=== PATIENT | female | born 1980 | race Hispanic/Latino ===

== ENCOUNTER 2018-01-15 13:42 | Inpatient (IN) | payer OTHER, SELFPAY ==
[2018-01-15 14:30] LABS: #Eosinphils 0.1 thou/uL (0.0-0.7); #Lymphocytes 0.9 thou/uL (1.20-3.40); #Monocytes 0.5 thou/uL (0.11-0.59); #Neutrophils 2.8 thou/uL (1.40-6.50); %Basophils 0.5 % (0.0-1.0); %Eosinophils 2.5 % (0.0-10.0); %Lymphocytes 21.1 % (21.0-51.0); %Monocytes 11.7 % (0.0-10.0); %Neutrophils 64.2 % (42.0-75.0); Hemoglobin 10.4 g/dL (12.0-16.0); Mean Corpuscular HGB CONC 32.8 g/dL (32.0-36.0); Mean Corpuscular Hemoglobin 28.3 pg (27.0-31.0); Mean Corpuscular Volume 86.3 fl (81.0-99.0); Mean Platelet Volume 6.1 fL (7.4-10.4); Platelet Count 304 thou/uL (130-400); RBC Distribution Width 12.7 % (11.5-14.5); Red Blood Cell (RBC) Count 3.66 mill/uL (4.20-5.40); White Blood Cell (WBC) Count 4.4 thou/uL (4.8-10.8)
[2018-01-15 14:42] LABS: Bilirubin Negative (Negative); Blood, Urine Negative (Negative); Clarity CLEAR (Clear); Glucose, Urine (Dipstick) Negative (Negative); Leukocyte Negative (Negative); Nitrite Negative (Negative); Protein, Urine (Dipstick) Negative (Neg-Trace); Specific Gravity, Urine 1.013 (1.002-1.036); Urobilinogen 0.2 mg/dL (0.2-1.0)
[2018-01-15 14:45] LABS: Pregnancy Test - Urine (BHCG) Negative (Negative); Pregu Control Background? CLEAR/WHITE (CLR/WHITE); Pregu Control Bar Appear? YES (CONTROL BAR); Specific Gravity 1.013 (1.002-1.036)
[2018-01-15 14:51] LABS: ALT (SGPT) 7 U/L (8-55); AST (SGOT) 9 U/L (5-34); Albumin 3.4 g/dL (3.5-5.0); Alkaline Phosphatase 57 U/L (40-150); Anion Gap 12 mmol/L (10-20); BUN (Urea Nitrogen) 4 mg/dL (7.0-18.7); Bilirubin, Total 0.3 mg/dL (0.2-1.2); Calc. Creatinine Clearance 0 mL/min (70-130); Calcium 8.6 mg/dL (7.8-10.44); Carbon Dioxide 25 mmol/L (22-29); Chloride 100 mmol/L (98-107); Estimated GFR-MDRD Greater than 90; Globulin 2.9 g/dL (2.4-3.5); Glucose 88 mg/dL (70-105); Lipase 10 U/L (8-78); Potassium 3.4 mmol/L (3.5-5.1); Protein, Total 6.3 g/dL (6.0-8.3); Sodium 134 mmol/L (136-145)
--- NOTE | 2018-01-15 16:09 | ULT ---
PELVIC SONOGRAM TRANSABDOMINAL AND TRANSVAGINAL IMAGING WITH DUPLEX EVALUATION: Date; 01/15/18 HISTORY: Pelvic pain. FINDINGS: Urinary bladder is decompressed. Uterus has a heterogeneous echotexture and is 7.7 cm. Endometrium is 1.3 cm. No free fluid is apparent. Nabothian cyst arises from the cervix. Right ovary is 2.9 cm. Left ovary is 2.3 cm. Each has a normal sonographic appearance and demonstrate s good color and spectral Doppler flow. IMPRESSION: 1. Thickened endometrium (1.3 cm). 2. No significant abnormalities are otherwise demonstrated. POS: [facility]
[2018-01-15] MEDS ORDERED: Morphine 2 MG/ML SYRINGE ONE (17:19)
--- NOTE | 2018-01-15 17:59 | RAD ---
ABDOMEN ONE VIEW 01/15/18 HISTORY: Abdominal pain. COMPARISON: None. FINDINGS: There are numerous gas filled loops of large bowel. Evaluation for free air is limited without uprigh t exam. There appears to be a lumbosacral transitional vertebrae. No abnormal calcifications projecting in the renal shadows. IMPRESSION: Mildly distended loops of large bowel that may represent ileus. POS: [facility]
[2018-01-15] MEDS ORDERED: Sodium Chloride 0.9% 1,000 ML IV SCH (18:15)
[2018-01-15] MEDS ORDERED: Morphine 2 MG/ML SYRINGE SLOW IVP PRN (18:21)
[2018-01-15] MEDS: Potassium Chloride 10 MEQ in Dextrose 5 % And 0.9 % NaCl 1,000 ML IV SCH (21:02)
--- NOTE | 2018-01-15 21:13 | HP ---
CHIEF COMPLAINT: Abdominal pain and bloody diarrhea. PRIMARY CARE PHYSICIAN: No primary care physician. HISTORY OF PRESENT ILLNESS: The patient is a very pleasant 37-year-old female who initially presente d to the hospital from a GI clinic for abdominal pain and bloody diarrhea. The patient stated that s he has a history of ulcerative colitis and has not been on any medication until 3 weeks ago. The pat vikki stated that 3 weeks ago, she went to Dr. Jmaes's office, her GI doctor, for abdominal pain and b loody diarrhea. At that time, the patient stated that she was put on steroids, sulfasalazine and mes alamine and today the patient returned to the office for followup and was asked to come here to the [facility]. The patient states that she has been having some chills and also complained of subjective f jay jay. The patient states that she has been trying to continue to take oral hydration; however, not as much. The patient denies any sick contacts. The patient states that she has been compliant with her prednisone. The patient when was admitted into the ER, there was a misunderstanding that she initially presented with vaginal bleeding and underwent a vaginal ultrasound and therefore, the patient and family has be en very upset about this. ALLERGIES: The patient has no known drug allergies. PAST MEDICAL HISTORY: The patient has a history of ulcerative colitis. FEMALE SURGERIES: The patient has had no female surgeries. SOCIAL HISTORY: The patient denies any alcohol, drug or smoking history. PAST SURGICAL HISTORY: The patient denies any surgical history. FAMILY HISTORY: The patient denies any significant history of heart disease. REVIEW OF SYSTEMS: The following complete review of systems was negative, unless otherwise mentioned in the HPI or below: Constitutional: Weight loss or gain, ability to conduct usual activities. Skin: Rash, itching. Eyes: Double vision, pain. ENT/Mouth: Nose bleeding, neck stiffness, pain, tenderness. Cardiovascular: Palpitations, dyspnea on exertion, orthopnea. Respiratory: Shortness of breath, wheezing, cough, hemoptysis, fever or night sweats. Gastrointestinal: Poor appetite, abdominal pain, heartburn, nausea, vomiting, constipation, or diarr hea. Genitourinary: Urgency, frequency, dysuria, nocturia. Musculoskeletal: Pain, swelling. Neurologic/Psychiatric: Anxiety, depression. Allergy/Immunologic: Skin rash, bleeding tendency. The only positive from that is the patient has been complaining of abdominal pain and having bloody d iarrhea and subjective fevers. PHYSICAL EXAMINATION: VITAL SIGNS: Blood pressure 106/70, heart rate of 118, respirations of 18, temperature of 97.4. GENERAL: She is awake, alert, oriented x3, does not appear in any distress; however, appears ill. RESPIRATORY: Lungs are clear to auscultation. No rhonchi or wheezes noted. CARDIOVASCULAR: S1, S2 present, regular, tachycardic. No murmurs present. ABDOMEN: Soft. Bowel sounds are present x2. Significant tenderness upon palpation to her left lowe r quadrant. EXTREMITIES: No pitting edema. Pedal pulses are present x2. LABORATORY DATA: As the following: WBC is 4.4, hemoglobin of 10.4, hematocrit of 31.6. Her ESR was 43. CRP was 6.7. Sodium of 134, potassium of 3.4, chloride of 100, creatinine 0.64. Lipase of 10. ASSESSMENT AND PLAN: The patient is a very pleasant 37-year-old female, who presents to the hospital with complaints of abdominal pain. 1. Abdominal pain, most likely secondary to ulcerative colitis flare. We will check patient's stool for C. diff, leukocytes and ova and parasites and E. coli to rule out any infectious process. We wi ll start the patient on Cipro and Flagyl. We will start the patient on IV prednisone and also rectal ly mesalamine. The patient currently is n.p.o. We will continue IV hydration. Consult GI. 2. Sinus tachycardia, most likely secondary to dehydration. We will continue IV hydration. We will admit the patient in telemetry. 3. Hypokalemia. We will replace potassium in her IV fluids.
[2018-01-15] MEDS: Famotidine 40 MG/4 ML VIAL SLOW IVP SCH (21:22)
[2018-01-15] MEDS: metroNIDAZOLE 500 MG in Premix Bag 1 BAG IVPB SCH (21:23)
[2018-01-15] MEDS: Heparin 5,000 UNITS/ML VIAL SC SCH (21:24)
[2018-01-15] MEDS: Morphine 5 MG/ML SYRINGE SLOW IVP PRN (21:51)
[2018-01-15 22:32] VITALS: BMI 21.7
--- NOTE | 2018-01-15 23:36 | CON ---
DATE OF CONSULTATION: 01/15/2018 GASTROENTEROLOGY CONSULTATION CHIEF COMPLAINT: Abdominal pain and bloody diarrhea. HISTORY OF PRESENT ILLNESS: Ms. Hager is a 37-year-old woman whom I have been following for left-si ded ulcerative colitis. I last saw her in 08/2016, at which point she was in remission on sulfasalaz ine alone. She has not been compliant with azathioprine and never really took this regularly. She s tarted cutting down her sulfasalazine and has been taking it maybe twice per day lately. She lucy hart was presented back to the GI clinic in mid-December with cramping left lower quadrant abdominal p ain and red blood mixed with formed stool, at which point she was started back on prednisone and her sulfasalazine dose was increased. She was advised to start the azathioprine 100 mg daily. Since the n, when she was 2-3 weeks ago, she did start azathioprine, has been taking sulfasalazine 1000 mg 3 ti mes a day. Unfortunately, her abdominal pain has worsened and she started with diarrhea 4-6 times pe r day which has just been liquidy bloody stool. She came to the office today and was seen by our [facility] assistant; however, she was very weak and she was tachycardic with a pulse over 120 and allyson tran was advised to head on to the emergency room. She received IV fluid in the emergency room and a fter that felt much better and her heart rate improved. There was some misunderstanding in the ER, a nd that she was thought to be having vaginal bleeding and she underwent pelvic ultrasound, which was unremarkable overall. There was a thickened endometrium. Abdominal x-ray showed mildly distended lo ops of large bowel. She has not had fever. She did report some subjective fever, however. Her abdo shagufta pain is significantly improved this afternoon; however, this evening after receiving IV morphin e. PAST MEDICAL HISTORY: Chronic ulcerative colitis diagnosed in 2011 with left-sided colitis to around 30 cm. She has been treated primarily with sulfasalazine and episodic steroids. She has been start ed on azathioprine at various points, but has not been compliant with that. PAST SURGICAL HISTORY: Colonoscopy. FAMILY HISTORY: Negative for GI malignancy. SOCIAL HISTORY: No alcohol, tobacco, or drugs. ALLERGIES: No known drug allergies. MEDICATIONS: Prior to admission azathioprine 100 mg daily, sulfasalazine 500 mg 3 times daily, folic acid 1 mg daily, and prednisone 10 mg daily on a taper that started at 40 mg. REVIEW OF SYSTEMS: Negative x10 systems reviewed except as stated in the history of present illness. PHYSICAL EXAMINATION: GENERAL: She is in no acute distress, alert and oriented x3. HEENT: Eyes have no scleral icterus. OROPHARYNX: Clear without lesions. NECK: No cervical or supraclavicular lymphadenopathy. LUNGS: Clear to auscultation bilaterally. HEART: Regular rate and rhythm without murmur. ABDOMEN: Soft, mildly tender diffusely without guarding. Bowel sounds are present. EXTREMITIES: No lower extremity edema. LABORATORY DATA: White blood cell count 4.4, hemoglobin 10.4, platelets 304. Creatinine 0.64. Bili rivera 0.3, AST 9, ALT 7, alkaline phosphatase 57. C-reactive protein 6.7, albumin 3.4, lipase 10. IMPRESSION: Exacerbation of chronic left-sided ulcerative colitis. We will need to rule out an infe ctious process. RECOMMENDATIONS: 1. Start methylprednisolone 20 mg IV q.8 hours. 2. She has been started on ciprofloxacin and metronidazole. Given the subjective fever and rectal b leeding and bloody diarrhea, this is reasonable. We may be able to wean these off after 5-7 day cour se. 3. Stool studies have been requested for Clostridium difficile, ova, parasite, culture and lactoferr in. She has not had a bowel movement for the last several hours and has not been able to collect the se as of yet. 4. Await stool studies. 5. We will increase the sulfasalazine 1000 mg 4 times daily. 6. Continue the azathioprine. 7. Continue folic acid if she is on sulfasalazine.
[2018-01-16] MEDS: Mesalamine 1000 MG Suppository PR SCH ×2 (00:05→20:33)
[2018-01-16] MEDS: Potassium Chloride 10 MEQ in Dextrose 5 % And 0.9 % NaCl 1,000 ML IV SCH ×4 (05:32→21:47)
[2018-01-16] MEDS: metroNIDAZOLE 500 MG in Premix Bag 1 BAG IVPB SCH ×3 (05:33→21:45)
[2018-01-16] MEDS: Morphine 5 MG/ML SYRINGE SLOW IVP PRN ×2 (05:38→14:12)
[2018-01-16 06:10] LABS: ALT (SGPT) Less than 7 U/L (8-55); AST (SGOT) 7 U/L (5-34); Albumin 2.9 g/dL (3.5-5.0); Alkaline Phosphatase 43 U/L (40-150); Anion Gap 11 mmol/L (10-20); BUN (Urea Nitrogen) Less than 4 mg/dL (7.0-18.7); Bilirubin, Total 0.2 mg/dL (0.2-1.2); Calc. Creatinine Clearance 103 mL/min (70-130); Calcium 7.8 mg/dL (7.8-10.44); Carbon Dioxide 22 mmol/L (22-29); Chloride 104 mmol/L (98-107); Estimated GFR-MDRD Greater than 90; Globulin 2.3 g/dL (2.4-3.5); Glucose 119 mg/dL (70-105); Potassium 3.6 mmol/L (3.5-5.1); Protein, Total 5.2 g/dL (6.0-8.3); Sodium 133 mmol/L (136-145)
[2018-01-16 06:35] LABS: Band 11 % (5-11); Hemoglobin 9.1 g/dL (12.0-16.0); Lymphocytes 13 % (21-51); MDiff Complete? YES; Mean Corpuscular HGB CONC 33.2 g/dL (32.0-36.0); Mean Corpuscular Hemoglobin 28.6 pg (27.0-31.0); Mean Corpuscular Volume 86.2 fl (81.0-99.0); Mean Platelet Volume 6.5 fL (7.4-10.4); Monocytes 7 % (0-10); Neutrophil 69 % (42-75); PLT Morphology Comment Appears Adequate; Platelet Count 284 thou/uL (130-400); RBC Distribution Width 12.9 % (11.5-14.5); RBC Morphology Normal; Red Blood Cell (RBC) Count 3.18 mill/uL (4.20-5.40); White Blood Cell (WBC) Count 4.6 thou/uL (4.8-10.8)
[2018-01-16] MEDS ORDERED: Potassium Chloride 20 MEQ TAB PO SCH (07:30)
[2018-01-16] MEDS ORDERED: FLU VACC QS2017-18 36 mo. & older 0.5 ML SYRINGE IM ONE (09:00)
[2018-01-16] MEDS: azaTHIOprine 50 MG TAB PO SCH (09:13)
[2018-01-16] MEDS: Heparin 5,000 UNITS/ML VIAL SC SCH ×3 (09:14→20:32)
[2018-01-16] MEDS: Famotidine 40 MG/4 ML VIAL SLOW IVP SCH ×2 (09:14→21:41)
[2018-01-16] MEDS: D5W IVPB SCH ×2 (09:23→20:32)
[2018-01-16] MEDS: ADMIXTURE FEE IVPB SCH ×2 (09:23→20:32)
[2018-01-16] MEDS: CIPROFLOXACIN LACTATE IVPB SCH ×2 (09:23→20:32)
--- NOTE | 2018-01-16 10:44 | PDOC.PN ---
- Subjective Encounter Start Date: 01/16/18 Encounter Start Time: 10:46 Subjective: No new complaints. -: No acute events overnight. - Objective MAR Reviewed: Yes Vital Signs & Weight: Vital Signs (12 hours) Temp Pulse Resp BP Pulse Ox 01/16/18 07:22 98.7 F 111 H 16 107/62 97 01/16/18 04:27 99.7 F H 102 H 18 117/58 L 97 Weight Weight 110 lb 14.28 oz I&O: 01/15/18 01/16/18 01/17/18 06:59 06:59 06:59 Intake Total 1375 Balance 1375 Result Diagrams: 01/16/18 04:59 01/16/18 04:59 Phys Exam - Physical Examination Constitutional: NAD HEENT: PERRLA, moist MMs, sclera anicteric Neck: no JVD, supple, full ROM Respiratory: no wheezing, no rales, no rhonchi, clear to auscultation bilateral Cardiovascular: RRR, no significant murmur, no rub Gastrointestinal: soft, no distention, positive bowel sounds LLQ tenderness. No rebound, guarding Musculoskeletal: no edema, pulses present Neurological: non-focal, moves all 4 limbs Psychiatric: normal affect, A&O x 3 Skin: no rash, normal turgor Dx/Plan (1) Ulcerative colitis, acute Code(s): K51.90 - ULCERATIVE COLITIS, UNSPECIFIED, WITHOUT COMPLICATIONS Status: Acute Qualifiers: Digestive disease complication type: with rectal bleeding Qualified Code(s) : K51.911 - Ulcerative colitis, unspecified with rectal bleeding Comment: Stable. Still has some pain but controlled. GI on board. Recs appreciated. Will continue antibiotics, imuran and sulfasalazinie. Follow up stool studies, including c. diff once collected. (2) Tachycardia Code(s): R00.0 - TACHYCARDIA, UNSPECIFIED Status: Acute Comment: Improving. Will give a bolus of normal saline. (3) Hypokalemia Code(s): E87.6 - HYPOKALEMIA Status: Acute Comment: Replete. - Plan cont current plan of care, continue antibiotics * . Review of Systems - Medications/Allergies Allergies/Adverse Reactions: Allergies Allergy/AdvReac Type Severity Reaction Status Date / Time No Known Drug Allergies Allergy Verified 01/15/18 22:11 Medications: Current Medications Azathioprine (Imuran) 100 mg PO DAILY [facility] Last Admin: 01/16/18 09:13 Dose: 100 mg Famotidine (Pepcid) 20 mg SLOW IVP Q12HR [facility] Last Admin: 01/16/18 09:14 Dose: 20 mg Folic Acid (Folvite) 1 mg PO DAILY [facility] Heparin Sodium (Porcine) (Heparin) 5,000 units SC TID [facility] Last Admin: 01/16/18 09:14 Dose: 5,000 units Metronidazole 500 mg/ Device 100 mls @ 100 mls/hr IVPB Q8HR [facility] Last Admin: 01/16/18 05:33 Dose: 100 mls Potassium Chloride 10 meq/ (Dextrose/Sodium Chloride) 1,005 mls @ 125 mls/hr IV .Q8H3M [facility] Last Admin: 01/16/18 05:32 Dose: 1,005 mls Ciprofloxacin/Dextrose 400 mg/ (Miscellaneous Medication) 200 mls @ 200 mls/hr IVPB Q12HR [facility] Last Admin: 01/16/18 09:23 Dose: Not Given Mesalamine (Canasa) 1,000 mg MO HS [facility] Last Admin: 01/16/18 00:05 Dose: Not Given Methylprednisolone Sodium Succinate (Solu-Medrol) 20 mg IVP Q8HR [facility] Last Admin: 01/16/18 05:30 Dose: 20 mg Morphine Sulfate (Morphine) 2 mg SLOW IVP Q4H PRN PRN Reason: Mild-Moderate Pain (1-5) Last Admin: 01/16/18 05:38 Dose: 2 mg Sodium Chloride (Flush - Normal Saline) 10 ml IVF Q12HR [facility] Last Admin: 01/16/18 09:19 Dose: Not Given Sodium Chloride (Flush - Normal Saline) 10 ml IVF PRN PRN PRN Reason: Saline Flush
[2018-01-16] MEDS ORDERED: Sodium Chloride 0.9% 1,000 ML IV SCH (10:45)
--- NOTE | 2018-01-16 15:15 | PRG ---
DATE OF SERVICE: 01/16/2018 SUBJECTIVE: Ms. Hager has ongoing periumbilical cramping pain today. She just had one bowel moveme nt so far today, which was red and bloody and one yesterday, which was red and bloody. No fever. OBJECTIVE: VITAL SIGNS: Temperature 98.4, pulse 94 and blood pressure 121/54. GENERAL: She is in no acute distress. She is awake and alert. LUNGS: Clear to auscultation bilaterally. HEART: Regular rate and rhythm. ABDOMEN: Soft and tender diffusely. Bowel sounds are present. EXTREMITIES: No lower extremity edema. LABORATORY DATA: White blood cell count 4.6, hemoglobin 9.1 and platelets 284. Creatinine 0.58, evelyn irubin 0.2 and albumin 2.9. IMPRESSION: Exacerbation of chronic ulcerative colitis. She has had left-sided disease by previous exams. Her last colonoscopy was in 2012. Her stool studies are negative for Clostridium difficile a nd other infections. RECOMMENDATIONS: 1. IV steroids. 2. Restart sulfasalazine and follow up with folic acid. 3. She has been started on azathioprine. 4. We will add Levsin for the abdominal pain or hyoscyamine. 5. She was started on ciprofloxacin and metronidazole. We can finish out a 5-day course of antibiot ics. 6. Dr. Horn is covering the weekend and I will be out of town next week. Dr. Castillo or Dr. Nagel will take over on Friday.
[2018-01-16] MEDS: sulfaSALAzine 500 MG TAB PO SCH ×2 (17:56→20:32)
[2018-01-16] MEDS: Hyoscyamine Sulfate SL 0.125 mg Tablet PO PRN (21:47)
[2018-01-17 05:19] LABS: #Lymphocytes 0.4 thou/uL (1.20-3.40); #Monocytes 0.4 thou/uL (0.11-0.59); #Neutrophils 2.8 thou/uL (1.40-6.50); %Eosinophils 0.2 % (0.0-10.0); %Monocytes 11.8 % (0.0-10.0); %Neutrophils 75.9 % (42.0-75.0); Hemoglobin 9.7 g/dL (12.0-16.0); Mean Corpuscular HGB CONC 32.6 g/dL (32.0-36.0); Mean Corpuscular Hemoglobin 28.2 pg (27.0-31.0); Mean Corpuscular Volume 86.8 fl (81.0-99.0); Mean Platelet Volume 6.6 fL (7.4-10.4); Platelet Count 346 thou/uL (130-400); RBC Distribution Width 12.9 % (11.5-14.5); Red Blood Cell (RBC) Count 3.43 mill/uL (4.20-5.40); White Blood Cell (WBC) Count 3.7 thou/uL (4.8-10.8)
[2018-01-17] MEDS: metroNIDAZOLE 500 MG in Premix Bag 1 BAG IVPB SCH ×3 (05:25→22:50)
[2018-01-17 05:28] LABS: Anion Gap 9 mmol/L (10-20); BUN (Urea Nitrogen) Less than 4 mg/dL (7.0-18.7); Calc. Creatinine Clearance 98 mL/min (70-130); Calcium 8.4 mg/dL (7.8-10.44); Carbon Dioxide 23 mmol/L (22-29); Chloride 108 mmol/L (98-107); Estimated GFR-MDRD Greater than 90; Glucose 152 mg/dL (70-105); Potassium 3.6 mmol/L (3.5-5.1); Sodium 136 mmol/L (136-145)
--- NOTE | 2018-01-17 10:25 | PDOC.PN ---
- Subjective Encounter Start Date: 01/17/18 Encounter Start Time: 10:24 Subjective: Had 2-3 bloody movements overnight -: Has no other complaints today. No acute events overnight. - Objective MAR Reviewed: Yes Vital Signs & Weight: Vital Signs (12 hours) Temp Pulse Resp BP Pulse Ox 01/17/18 07:42 99.1 F 96 18 100/51 L 97 01/17/18 04:00 98.5 F 100 20 112/62 97 01/17/18 00:00 20 Weight Weight 107 lb 12.897 oz I&O: 01/16/18 01/17/18 01/18/18 06:59 06:59 07:59 Intake Total 1375 3749 Output Total 450 Balance 1375 3299 Result Diagrams: 01/17/18 04:47 01/17/18 04:47 Phys Exam - Physical Examination Constitutional: NAD HEENT: PERRLA, moist MMs, sclera anicteric Neck: supple, full ROM Respiratory: no wheezing, no rales, no rhonchi, clear to auscultation bilateral Cardiovascular: RRR, no significant murmur, no rub Gastrointestinal: soft, no distention, positive bowel sounds Mild tenderness in LLQ. No rebound, guarding. Musculoskeletal: no edema, pulses present Neurological: non-focal, moves all 4 limbs Skin: no rash, normal turgor Dx/Plan (1) Ulcerative colitis, acute Code(s): K51.90 - ULCERATIVE COLITIS, UNSPECIFIED, WITHOUT COMPLICATIONS Status: Acute Qualifiers: Digestive disease complication type: with rectal bleeding Qualified Code(s) : K51.911 - Ulcerative colitis, unspecified with rectal bleeding Comment: Stable. Still has some pain but controlled. GI on board. Recs appreciated. Will continue antibiotics, imuran and sulfasalazinie. Stool studies w + lactoferrin but otherwise negative. (2) Tachycardia Code(s): R00.0 - TACHYCARDIA, UNSPECIFIED Status: Resolved Comment: (3) Hypokalemia Code(s): E87.6 - HYPOKALEMIA Status: Resolved - Plan cont current plan of care, continue antibiotics * . Review of Systems - Medications/Allergies Allergies/Adverse Reactions: Allergies Allergy/AdvReac Type Severity Reaction Status Date / Time No Known Drug Allergies Allergy Verified 01/15/18 22:11 Medications: Current Medications Azathioprine (Imuran) 100 mg PO DAILY [facility] Last Admin: 01/16/18 09:13 Dose: 100 mg Famotidine (Pepcid) 20 mg SLOW IVP Q12HR [facility] Last Admin: 01/16/18 21:41 Dose: 20 mg Folic Acid (Folvite) 1 mg PO DAILY [facility] Heparin Sodium (Porcine) (Heparin) 5,000 units SC TID [facility] Last Admin: 01/16/18 20:32 Dose: 5,000 units Hyoscyamine Sulfate (Levsin Sl) 0.125 mg PO Q4H PRN PRN Reason: GI Cramping Last Admin: 01/16/18 21:47 Dose: 0.125 mg Metronidazole 500 mg/ Device 100 mls @ 100 mls/hr IVPB Q8HR [facility] Last Admin: 01/17/18 05:25 Dose: 100 mls Potassium Chloride 10 meq/ (Dextrose/Sodium Chloride) 1,005 mls @ 125 mls/hr IV .Q8H3M [facility] Last Admin: 01/16/18 21:47 Dose: 1,005 mls Ciprofloxacin/Dextrose 400 mg/ (Miscellaneous Medication) 200 mls @ 200 mls/hr IVPB Q12HR [facility] Last Admin: 01/16/18 20:32 Dose: 200 mls Mesalamine (Canasa) 1,000 mg IN HS [facility] Last Admin: 01/16/18 20:33 Dose: 1,000 mg Methylprednisolone Sodium Succinate (Solu-Medrol) 20 mg IVP Q8HR [facility] Last Admin: 01/17/18 05:25 Dose: 20 mg Morphine Sulfate (Morphine) 2 mg SLOW IVP Q4H PRN PRN Reason: Mild-Moderate Pain (1-5) Last Admin: 01/16/18 14:12 Dose: 2 mg Sodium Chloride (Flush - Normal Saline) 10 ml IVF Q12HR [facility] Last Admin: 01/16/18 21:43 Dose: 10 ml Sodium Chloride (Flush - Normal Saline) 10 ml IVF PRN PRN PRN Reason: Saline Flush Sulfasalazine (Azulfidine) 1,000 mg PO QID [facility] Last Admin: 01/16/18 20:32 Dose: 1,000 mg
[2018-01-17] MEDS: Famotidine 40 MG/4 ML VIAL SLOW IVP SCH (10:34)
[2018-01-17] MEDS: CIPROFLOXACIN LACTATE IVPB SCH ×2 (10:35→20:56)
[2018-01-17] MEDS: ADMIXTURE FEE IVPB SCH ×2 (10:35→20:56)
[2018-01-17] MEDS: D5W IVPB SCH ×2 (10:35→20:56)
[2018-01-17] MEDS: Potassium Chloride 10 MEQ in Dextrose 5 % And 0.9 % NaCl 1,000 ML IV SCH ×2 (10:35→19:24)
[2018-01-17] MEDS: azaTHIOprine 50 MG TAB PO SCH (10:36)
[2018-01-17] MEDS: Heparin 5,000 UNITS/ML VIAL SC SCH ×3 (10:36→21:01)
[2018-01-17] MEDS: sulfaSALAzine 500 MG TAB PO SCH ×4 (10:36→21:00)
[2018-01-17] MEDS: Folic Acid 1 MG TAB PO SCH (10:36)
[2018-01-17] MEDS: Mesalamine 1000 MG Suppository PR SCH (21:01)
[2018-01-17] MEDS: Famotidine/PF 20 mg/2ml Vial SLOW IVP SCH (21:02)
--- NOTE | 2018-01-17 21:02 | PRG ---
DATE OF SERVICE: 01/17/2018 This is a cross coverage for Dr. Gurpreet James. SUBJECTIVE: Ms. Camille Hager is a 37-year-old Latin-[place] female with ulcerative colitis. She is poorly compliant with taking medication. She came with flareup. She is on IV steroids and azathiop rine. She is actually feeling better today. She has had only one stool today. She had 2 or 3 stool s last night. She has no abdominal pain, no nausea, no vomiting. She is still on clear liquid diet. PHYSICAL EXAMINATION: GENERAL: Appears comfortable. VITAL SIGNS: Afebrile, temperature 98 degrees Fahrenheit, pulse is 89, blood pressure 107/64. CARDIOVASCULAR: First and second heart sounds are normal. LUNGS: Clear to auscultation. ABDOMEN: Soft to palpate. Abdomen is nontender. No organomegaly. LABORATORY DATA: From today, WBC 3700, hemoglobin is 10.7, hematocrit 29.8, platelet count 346,000. Chemistry panel: Sodium 136, potassium 3.6, chloride 108, bicarbonate 23, BUN is less than 4, creat inine 0.61, glucose 152. CLINICAL IMPRESSION: Flare up of ulcerative colitis due to poor compliance. She is actually doing b john today. She has had only one stool today. She is on IV prednisone and azathioprine. RECOMMENDATION: Advance to a regular diet and observe for 24 hours. If the stool frequency remains around 1-2, we may consider discharge hopefully tomorrow on systemic steroids and azathioprine.
[2018-01-17] MEDS ORDERED: Ibuprofen 200 MG TAB PO SCH (21:45)
[2018-01-17] MEDS: Hyoscyamine Sulfate SL 0.125 mg Tablet PO PRN (22:55)
[2018-01-18 05:18] LABS: #Lymphocytes 0.4 thou/uL (1.20-3.40); #Monocytes 0.2 thou/uL (0.11-0.59); %Basophils 0.3 % (0.0-1.0); %Eosinophils 0.4 % (0.0-10.0); %Lymphocytes 16.2 % (21.0-51.0); %Monocytes 8.2 % (0.0-10.0); Hemoglobin 8.5 g/dL (12.0-16.0); Mean Corpuscular HGB CONC 32.3 g/dL (32.0-36.0); Mean Corpuscular Hemoglobin 27.9 pg (27.0-31.0); Mean Corpuscular Volume 86.6 fl (81.0-99.0); Mean Platelet Volume 6.3 fL (7.4-10.4); Platelet Count 297 thou/uL (130-400); RBC Distribution Width 12.8 % (11.5-14.5); Red Blood Cell (RBC) Count 3.05 mill/uL (4.20-5.40); White Blood Cell (WBC) Count 2.7 thou/uL (4.8-10.8)
[2018-01-18] MEDS: metroNIDAZOLE 500 MG in Premix Bag 1 BAG IVPB SCH (05:22)
[2018-01-18 05:32] LABS: Anion Gap 9 mmol/L (10-20); BUN (Urea Nitrogen) Less than 4 mg/dL (7.0-18.7); Calc. Creatinine Clearance 106 mL/min (70-130); Calcium 7.9 mg/dL (7.8-10.44); Carbon Dioxide 23 mmol/L (22-29); Chloride 109 mmol/L (98-107); Estimated GFR-MDRD Greater than 90; Glucose 131 mg/dL (70-105); Potassium 3.6 mmol/L (3.5-5.1); Sodium 137 mmol/L (136-145)
[2018-01-18] MEDS: Potassium Chloride 10 MEQ in Dextrose 5 % And 0.9 % NaCl 1,000 ML IV SCH (09:46)
[2018-01-18] MEDS: Folic Acid 1 MG TAB PO SCH (09:47)
[2018-01-18] MEDS: D5W IVPB SCH (09:47)
[2018-01-18] MEDS: CIPROFLOXACIN LACTATE IVPB SCH (09:47)
[2018-01-18] MEDS: Famotidine/PF 20 mg/2ml Vial SLOW IVP SCH (09:47)
[2018-01-18] MEDS: azaTHIOprine 50 MG TAB PO SCH (09:47)
[2018-01-18] MEDS: ADMIXTURE FEE IVPB SCH (09:47)
[2018-01-18] MEDS: Heparin 5,000 UNITS/ML VIAL SC SCH (09:48)
[2018-01-18] MEDS: sulfaSALAzine 500 MG TAB PO SCH (09:53)
--- NOTE | 2018-01-18 13:10 | PRG ---
DATE OF SERVICE: 01/18/2018 SUBJECTIVE: This is a 37-year-old female with ulcerative colitis, poorly compliant, t aking medication. She was hospitalized because of her last drawn CBC. She has done very well over t he last couple of days. She had one stool, is formed. No blood in stool. She had two stools yester day. She is tolerating diet. Her stool studies for C. difficile, Campylobacter and culture all came back negative. Campylobacter antigen is negative. PHYSICAL EXAMINATION: GENERAL: Appears comfortable. She is a fragile looking female, appears very comforta ble. VITAL SIGNS: Stable. Afebrile, pulse is 84, blood pressure 106/57. LUNGS: Within normal limits. ABDOMEN: Soft to palpate. Abdomen is nontender. CLINICAL IMPRESSION: Ulcerative colitis relapse, symptoms are controlled. RECOMMENDATIONS: 1. Patient can be discharged home today on a steroid taper. Start patient on prednisone 30 mg p.o. once a day and she will cut down the prednisone by 5 mg every week. 2. Azathioprine 50 mg p.o. once a day. 3. Sulfasalazine 500 mg tablet 2 tablets p.o. twice a day. The patient will return to see Dr. Gurpreet James as an outpatient in the future. She does not need a ntibiotics at the time of discharge as her stool studies were negative.
--- NOTE | 2018-01-18 15:24 | DIS ---
DISCHARGE DIAGNOSES: 1. Ulcerative colitis flare. 2. Tachycardia. 3. Hypokalemia. HOSPITAL COURSE: While patient was in hospital, the patient was seen by GI. The patient was started on IV steroids as well as immunosuppressants with sulfasalazine as well as azathioprine. With these measures as well as keep the patient n.p.o. initially for bowel rest. The patient improved signific antly. Patient was afebrile with no leukocytosis. There is no further intervention is required from medicine as well as GI point of view. Because of this, we are okay with get her home with a tapered dose of steroids with sulfasalazine and azathioprine. She was instructed to followup with primary c are physician in 1 week as well as her GI specialist in 2 weeks. All questions answered prior to dis charge. DISPOSITION: To home. DISCHARGE CONDITION: Much improved from when she initially came in. DISCHARGE MEDICATIONS: Please see home medication. Please see reconciled medication list, which inc ludes sulfasalazine as well as azathioprine. DISCHARGE ACTIVITY: As tolerated. DISCHARGE DIET: As tolerated. FOLLOWUP APPOINTMENTS: Primary care in 1 week as well as GI in 2 weeks. DISCHARGE PLAN: Greater than 30 minutes.
[2018-01-18 15:27] VITALS: BP 104/58; TEMP 98.2
== END 2018-01-18 13:30 | disposition home or self-care (01) | DRG 387 ==
LOC: ERS 13:42 → 2NO 19:15 → ONC 01-17 13:41
PROVIDERS: ADMIT Internal Medicine; ATTEND Internal Medicine
DX: K51.50 Left sided colitis without complications (principal); E86.0 Dehydration; R00.0 Tachycardia, unspecified; E87.6 Hypokalemia; Z79.899 Other long term (current) drug therapy
CPT/HCPCS: 36415; 74018; 76856; 80048; 80053; 81003; 81025; 83630; 83690; 85007; 85025; 85027; 85652; 86140; 86850; 86900; 86901; 87045; 87046; 87324; 87449; 87899; 96361; 96374; J2270; A4216; J0744; J1644; J2920; J3480; J7042; J7500; S0028

== ENCOUNTER 2018-08-14 12:23 | Inpatient (IN) | payer OTHER, SELFPAY ==
[2018-08-14 13:03] LABS: Hemoglobin 12.3 g/dL (12.0-16.0); Mean Corpuscular HGB CONC 33.8 g/dL (32.0-36.0); Mean Corpuscular Hemoglobin 32.4 pg (27.0-31.0); Mean Corpuscular Volume 95.7 fL (78.0-98.0); Mean Platelet Volume 6.9 fL (7.4-10.4); Platelet Count 386 thou/uL (130-400); RBC Distribution Width 13.6 % (11.5-14.5); Red Blood Cell (RBC) Count 3.81 mill/uL (4.20-5.40); White Blood Cell (WBC) Count 9.6 thou/uL (4.8-10.8)
[2018-08-14 13:15] LABS: BHCG - Serum Negative (NEGATIVE); Pregs Control Background? CLEAR/WHITE (CLR/WHITE); Pregs Control Bar Appear? YES (CONTROL BAR)
[2018-08-14 13:23] LABS: ALT (SGPT) Less than 7 U/L (8-55); AST (SGOT) 8 U/L (5-34); Albumin 3.5 g/dL (3.5-5.0); Alkaline Phosphatase 61 U/L (40-150); Anion Gap 10 mmol/L (10-20); BUN (Urea Nitrogen) 6 mg/dL (7.0-18.7); Bilirubin, Total 0.6 mg/dL (0.2-1.2); Calc. Creatinine Clearance 0 mL/min (70-130); Calcium 8.6 mg/dL (7.8-10.44); Carbon Dioxide 27 mmol/L (22-29); Chloride 100 mmol/L (98-107); Estimated GFR-MDRD Greater than 90; Globulin 3.1 g/dL (2.4-3.5); Glucose 114 mg/dL (70-105); Lipase 5 U/L (8-78); Potassium 3.2 mmol/L (3.5-5.1); Protein, Total 6.6 g/dL (6.0-8.3); Sodium 134 mmol/L (136-145)
[2018-08-14 13:27] LABS: Band 37 % (5-11); Eosinophils 3 % (0-10); Lymphocytes 8 % (21-51); MDiff Complete? YES; Metamyelocyte 1 % (0-0); Monocytes 11 % (0-10); Neutrophil 40 % (42-75); PLT Morphology Comment Appears Adequate; Polychromasia SLIGHT = 2-3 cells (100X) (0-2/hpf)
[2018-08-14] MEDS ORDERED: ISOVUE-370 76%-LOCM 1 ML ONE (13:28)
[2018-08-14 13:55] LABS: CKMB 0.6 ng/mL (0-6.6); Troponin I Less than 0.010 ng/mL (< 0.028)
[2018-08-14] MEDS ORDERED: Ondansetron HCl/PF 4 MG/2 ML Vial ONE (14:08)
[2018-08-14] MEDS ORDERED: Morphine 4 MG/ML VIAL ONE (14:08)
--- NOTE | 2018-08-14 14:23 | CT ---
CT ABDOMEN AND PELVIS WITH IV CONTRAST: Date: 08/14/18 HISTORY: Abdominal pain, rectal bleeding. History of ulcerative colitis. FINDINGS: The lung bases are clear. The liver, spleen, pancreas, adrenal glands, and kidneys are normal. No calcified gallstones are seen . No free air, free fluid, or lymphadenopathy is noted in the abdomen or pelvis. A normal appearing appendix is seen. There is thickening of the rectosigmoid and descending colon. Uterus and ovaries are present. There is a 2.0 cm right ovarian cyst. IMPRESSION: 1. Colonic wall thickening, which may be due to ulcerative colitis. 2. 2.0 cm right ovarian cyst. POS: [facility]
[2018-08-14] MEDS ORDERED: Dexamethasone 10 MG/ML VIAL ONE (15:15)
[2018-08-14 15:39] LABS: Bilirubin Negative (Negative); Blood, Urine Negative (Negative); Clarity CLEAR (Clear); Glucose, Urine (Dipstick) Negative (Negative); Leukocyte Negative (Negative); Nitrite Negative (Negative); Protein, Urine (Dipstick) Negative (Neg-Trace); Urobilinogen 0.2 mg/dL (0.2-1.0)
[2018-08-14 15:41] LABS: Specific Gravity, Urine Greater than 1.060 (1.002-1.036)
[2018-08-14] MEDS ORDERED: Ondansetron ODT 4 MG TAB PO PRN (16:18)
[2018-08-14] MEDS ORDERED: Acetaminophen 325 MG TAB PO PRN (16:18)
[2018-08-14] MEDS ORDERED: Potassium Chloride 20 MEQ TAB PO SCH (16:45)
[2018-08-14 18:00] VITALS: BMI 18.6
[2018-08-14 20:27] LABS: HBSAB Concentration 1.74 mIU/mL; HBSAg Index 0.31 S/CO (0-0.99); HIV (1/2) Antibody/Antigen Non-Reactive (NonReactive); HIV 1/2 INDEX 0.22 S/CO (<1.00); Hep B Core Total Ab Non-Reactive (NonReactive); Hep B Core Total Index 0.08 S/CO (0-0.79); Hep B Surf AB Non-Reactive (NonReactive); Hep B Surf Ag Non-Reactive S/CO (NonReactive); Hep C IgG Ab Non-Reactive (NonReactive); Hep C Index 0.14 S/CO (0-0.79)
[2018-08-14] MEDS: Famotidine 20 MG TAB PO SCH (20:34)
[2018-08-14] MEDS: Enoxaparin Sodium 30 MG/0.3 ML SYRINGE SC SCH (20:34)
--- NOTE | 2018-08-14 23:03 | HP ---
CHIEF COMPLAINT: Abdominal pain. HISTORY OF PRESENT ILLNESS: The patient is a 38-year-old female who presented to the [facility]. The patient reports that she has had about 3 weeks of exacerbation of her ulcerative colitis symptoms. This is primarily manifest as a crampy abdominal pain mostly on the left side and some blo raymundo bowel movements. Over the last week, she has had substantially more blood. She has had signific ant urgency which at times waking her from sleep at night to have the bowel movements. She denies an y fevers or chills. She does have some associated nausea and has not eaten anything at all today dixie t has seemed to help slow down some of her symptoms and her bowel movements. She has been taking her azathioprine, it appears as that has not been as helpful as in the past for her. This patient initi ally presented to the GI clinic with these symptoms; however, she was noted to be tachycardic and was subsequently referred directly over to the emergency department for further evaluation. PAST MEDICAL HISTORY: Notable for the above-mentioned ulcerative colitis which appears to be primari ly left-sided. PAST SURGICAL HISTORY: None. FAMILY HISTORY: No significant history of premature heart disease or cancer. SOCIAL HISTORY: The patient is a nonsmoker, nondrinker, nondrug user. She is . She is FULL CODE and her would be her surrogate decision maker. REVIEW OF SYSTEMS: Most notable for no vomiting with some low-grade nausea. She has had about a 10- pound weight loss, but otherwise ten-system review is negative except for those things mentioned in t he history of present illness. ALLERGIES: None. CURRENT MEDICATIONS: Azathioprine 100 mg p.o. q. day. PHYSICAL EXAMINATION: VITAL SIGNS: Blood pressure 121/76, pulse 91, respirations 22, temperature 98.9, O2 sat 100% on room air. GENERAL APPEARANCE: Age appropriate female. She is pleasant and cooperative, in no distress. HEENT: PERRL. No OP lesions. NECK: Supple and symmetric. HEART: Regular rate and rhythm without murmurs, gallops or rubs. LUNGS: Clear to auscultation bilaterally with good chest wall expansion and air exchange. ABDOMEN: Diffusely tender, more so on the left with some mild guarding. She has hyperactive bowel s ounds. No masses are palpable. EXTREMITIES: Warm and dry with no edema. Good peripheral pulses. LABORATORY DATA: White count 9.6, hemoglobin 12.3, platelets 386, 40% neutrophils, 37% bands, 8 lymp hocytes , 11 monocytes. Sodium 134, potassium 3.2, CO2 is 27, BUN 6, creatinine 0.7, glucose 114. A ST is 8, ALT less than 7. CRP is 8.43. Lipase 5. test negative. Urinalysis: Specific g ravity is 1.036. test was negative. A CT abdomen and pelvis shows colonic wall thickening which may be due to ulcerative colitis and 2 cm right ovarian cyst. IMPRESSION AND PLAN: 1. Abdominal pain with hematochezia consistent with exacerbation of her ulcerative colitis. The pat ient has been on immunosuppressive medications, but as of yet has not had significant more suppressio n of these symptoms. GI was consulted and has ordered some stool studies, but the patient has not connelly d a bowel movement since she presented to the emergency department. Discussing with gastrointestinal , we will try to give her some p.o. intake to see if that will help to stimulate some further activit y to help get stool samples to rule out other pathology such as infectious etiology. Per Dr. James's recommendation, the patient also received 10 mg of IV Decadron. 2. Hypokalemia. We will give repletion and follow up. 3. Significant bandemia with no leukocytosis. We will continue to monitor that. Her highest temper ature here has been 99.4, so at present holding off on any antibiotics.
--- NOTE | 2018-08-14 23:05 | CON ---
DATE OF CONSULTATION: 08/14/2018 CHIEF COMPLAINT: Diarrhea and bleeding. HISTORY OF PRESENT ILLNESS: Ms. Hager is a 38-year-old woman whom I have been following for left-si ded ulcerative colitis since 2011. She was diagnosed in 2011 by colonoscopy with rectosigmoid chroni c ulcerative colitis. She was treated with steroids and mesalamine and sulfasalazine. She was start ed on azathioprine, which she has taken on and off since then. She has gone months or years at time off medications. She has had multiple courses of prednisone over these timeframes. She has been uni nsured and treatment has been difficult. She was given a course of steroids and sulfasalazine in 2017. In January, she flared again and required admission for IV steroids and then again was released on a prednisone taper. She presented back to the office in 04/2018 again with left-sided abdominal p ain and bloody diarrhea and she was given another 35 days prednisone taper and her symptoms improved. She completed that course and then about 3 weeks to a month ago, again, she started back with diarr hea with 3-8 stools per day and rectal bleeding. She has had increased bleeding this time and her pa in has been a little bit different. She has more of a burning pain in the left abdomen. She has had no nausea or vomiting, but she has had loss of appetite. She has had no fever but has had some swea ts. She has been taking her azathioprine 100 mg daily and has been on sulfasalazine 1000 mg twice da varinder. She had headaches when she was on higher doses. She presented to the office and saw the physic ramirez career services assistant today. She was weak and has been having bloody diarrhea and wanted steroids; however, we insisted on admission at this point as obviously her current treatment is inadequate and she needs more aggressive care. She came to the emergency room and was found to have a pulse in the 140 range . She was given IV fluids and this is improved. She had a CT scan of the abdomen and pelvis which s howed inflammatory changes around the rectum and sigmoid and descending colon. A 2 cm ovarian cyst w as also noted. PAST MEDICAL HISTORY: Chronic ulcerative left-sided colitis. PAST SURGICAL HISTORY: Negative other than colonoscopy. Her last colonoscopy was in 2012. FAMILY HISTORY: Negative for GI malignancies. SOCIAL HISTORY: No alcohol, tobacco or drugs. ALLERGIES: No known drug allergies. MEDICATIONS: Prior to admission, azathioprine 100 mg daily, sulfasalazine 1000 mg twice daily, folic acid 1 mg daily. REVIEW OF SYSTEMS: Negative x10 systems reviewed except as stated in history of present illness. PHYSICAL EXAMINATION: VITAL SIGNS: Temperature 98.9, pulse 91, blood pressure 121/76. GENERAL: She is in no acute distress. She is alert and oriented x3. HEENT: Eyes have no scleral icterus. Oropharynx is clear, without lesions. NECK: No cervical or supraclavicular lymphadenopathy. LUNGS: Clear to auscultation bilaterally. HEART: Regular rate and rhythm without murmur. ABDOMEN: Soft. She has mild tenderness in the left lower quadrant without guarding. Bowel sounds a re present. EXTREMITIES: No lower extremity edema. NEUROLOGIC: Cranial nerves are grossly intact. LABORATORY DATA: White blood cell count 9.6, hemoglobin 12.3, platelets 386, creatinine 0.7, bilirub in 0.6, AST 8, ALT 7, alkaline phosphatase 61, albumin 3.5, lipase 5. Serum test which was negative. C-reactive protein 8.4. IMPRESSION: Exacerbation of chronic left-sided ulcerative colitis. She has required steroids, 5-wee k long tapers in December, January and April at least this year so far. She is going to require steroid s again now. The azathioprine has been inadequate to maintain her induce remission at this point. T he sulfasalazine has not been able to reach optimal dosing with headache side effects on higher doses . She will likely require anti-TNF at this point versus vedolizumab. Given her lack of insurance, samuel hernandez will explore options with the drug companies find out if we can obtain medication through them. We will need to rule out infectious process. She should have followup colonoscopy at this point for ba mookie exam prior to starting a new medication. RECOMMENDATIONS: 1. Stool for Clostridium difficile culture, ova and parasite. 2. IV Solu-Medrol 20 mg q.8 hours. 3. Once she is clinically improved, then we will plan a colonoscopy while she is here. 4. Check viral hepatitis screen and TB QuantiFERON in anticipation of needing to start an anti-TNF. Check HIV as well. 5. She will need vaccination for flu and pneumonia and verify her pertussis diphtheria and tetanus a re up to date as well. 6. Ideally, we would also check thiopurine metabolite level to see where she stands on the therapeut ic range for her azathioprine.
[2018-08-15 05:03] LABS: #Lymphocytes 0.4 thou/uL (1.20-3.40); #Monocytes 0.1 thou/uL (0.11-0.59); #Neutrophils 3.4 thou/uL (1.40-6.50); %Eosinophils 0.2 % (0.0-10.0); %Lymphocytes 9.8 % (21.0-51.0); %Monocytes 2.9 % (0.0-10.0); %Neutrophils 87.1 % (42.0-75.0); Hemoglobin 9.9 g/dL (12.0-16.0); Mean Corpuscular HGB CONC 32.4 g/dL (32.0-36.0); Mean Corpuscular Hemoglobin 31.2 pg (27.0-31.0); Mean Corpuscular Volume 96.4 fL (78.0-98.0); Mean Platelet Volume 6.8 fL (7.4-10.4); Platelet Count 310 thou/uL (130-400); RBC Distribution Width 13.7 % (11.5-14.5); Red Blood Cell (RBC) Count 3.18 mill/uL (4.20-5.40); White Blood Cell (WBC) Count 3.9 thou/uL (4.8-10.8)
[2018-08-15 05:20] LABS: Anion Gap 9 mmol/L (10-20); BUN (Urea Nitrogen) Less than 4 mg/dL (7.0-18.7); Calc. Creatinine Clearance 104 mL/min (70-130); Carbon Dioxide 23 mmol/L (22-29); Chloride 109 mmol/L (98-107); Estimated GFR-MDRD Greater than 90; Glucose 121 mg/dL (70-105); Potassium 3.8 mmol/L (3.5-5.1); Sodium 137 mmol/L (136-145)
[2018-08-15] MEDS: HYDROcodone/Acetaminophen 5/325 mg Tablet PO PRN ×3 (07:15→17:24)
[2018-08-15] MEDS: Famotidine 20 MG TAB PO SCH ×2 (09:17→20:53)
--- NOTE | 2018-08-15 12:01 | PDOC.PN ---
- Subjective Encounter Start Date: 08/15/18 Encounter Start Time: 11:15 Still has some LLQ pain. Better at the moment. Only one small bm since arriving here. - Objective Resuscitation Status: Resuscitation Status FULL:Full Resuscitation Vital Signs & Weight: Vital Signs (12 hours) Temp Pulse Resp BP Pulse Ox 08/15/18 11:00 98.2 F 71 18 114/75 98 08/15/18 07:52 97.8 F 76 18 102/66 96 08/15/18 04:59 97.7 F 68 16 108/65 97 Weight Weight 105 lb I&O: 08/14/18 08/15/18 08/16/18 06:59 06:59 06:59 Intake Total 800 Balance 800 Result Diagrams: 08/15/18 04:45 08/15/18 04:45 Phys Exam - Physical Examination Constitutional: NAD Respiratory: no wheezing, no rales, no rhonchi, clear to auscultation bilateral Cardiovascular: RRR, no significant murmur, no rub Gastrointestinal: soft, no distention, positive bowel sounds Slight LLQ TTP. No guarding. Musculoskeletal: no edema Psychiatric: normal affect Dx/Plan (1) Ulcerative colitis, acute Code(s): K51.90 - ULCERATIVE COLITIS, UNSPECIFIED, WITHOUT COMPLICATIONS Status: Acute Qualifiers: Comment: Stable. Still has some pain but controlled. GI on board. Recs appreciated. Will continue antibiotics, imuran and sulfasalazinie. Stool studies w + lactoferrin but otherwise negative. (2) Abdominal pain Code(s): R10.9 - UNSPECIFIED ABDOMINAL PAIN Status: Acute (3) Hematochezia Code(s): K92.1 - MELENA Status: Acute (4) Hypokalemia Code(s): E87.6 - HYPOKALEMIA Status: Resolved (5) Tachycardia Code(s): R00.0 - TACHYCARDIA, UNSPECIFIED Status: Resolved Comment: - Plan * Discussed with GI. Anticipates scope tomorrow. Hgb dropped a little. Recheck this afternoon. Continue steroids and pain management.
[2018-08-15 14:06] LABS: Hemoglobin 10.5 g/dL (12.0-16.0)
[2018-08-15 15:08] LABS: Reference Lab Name LABCORP
[2018-08-15 15:09] LABS: Ref Lab Test Ordered THIOPURINE METABOLIT
[2018-08-15] MEDS ORDERED: GoLYTELY 4,000 ml Bottle PO SCH (17:00)
--- NOTE | 2018-08-15 17:45 | HP ---
DATE OF VISIT: 08/15/2018.
--- NOTE | 2018-08-15 18:19 | HP ---
DATE OF VISIT: 08/15/2018 HISTORY OF PRESENT ILLNESS: This is a 38-year-old Latin-Mexican female with relapse of ulcerative c olitis. She is on IV steroids. She has stool studies yesterday which came back negative for C. diff icile culture, 1 parasites. The patient has only one stool last night and had only one stool this mo rning. Abdominal pain is much better. No nausea, no vomiting. She has clear liquid diet. She has no rectal bleeding. PHYSICAL EXAMINATION: GENERAL: She is thin built, appears comfortable. VITAL SIGNS: Very stable, afebrile. Pulse is 76, blood pressure 102/66. CARDIOVASCULAR: First and second heart sounds normal. LUNGS: Clear to auscultation. ABDOMEN: Soft. Abdomen is nondistended. Abdomen is minimally tender ____. Overall, the exam is ve ry benign. LABORATORY: From this morning, CBC shows WBC 3900, hemoglobin 9.9, hematocrit 30.7, platelet count i s 310,000, polymorphs 87. Chem-7 is normal. Potassium 3.8. CLINICAL IMPRESSION: Relapse of ulcerative colitis. RECOMMENDATIONS: 1. Continue IV steroids. 2. Continue clear liquid diet. 3. Colonoscopy tomorrow morning.
[2018-08-15] MEDS: Enoxaparin Sodium 30 MG/0.3 ML SYRINGE SC SCH (20:54)
[2018-08-16] MEDS: HYDROcodone/Acetaminophen 5/325 mg Tablet PO PRN ×3 (08:09→17:44)
[2018-08-16] MEDS: Famotidine 20 MG TAB PO SCH ×2 (08:10→21:07)
[2018-08-16] MEDS ORDERED: Ondansetron HCl/PF 4 MG/2 ML Vial IVP PRN (11:36)
--- NOTE | 2018-08-16 13:40 | PDOC.PN ---
- Subjective Encounter Start Date: 08/16/18 Encounter Start Time: 08:20 Feeling poorly today. Still having a fair amount of discomfort. She was not able to complete all of the prep and continued to pass bloody stools. - Objective Resuscitation Status: Resuscitation Status FULL:Full Resuscitation Vital Signs & Weight: Vital Signs (12 hours) Temp Pulse Resp BP Pulse Ox 08/16/18 13:07 97.7 F 77 16 102/66 100 08/16/18 08:00 100 08/16/18 07:53 98.6 F 89 16 110/76 100 08/16/18 04:49 98.3 F 71 16 100/68 98 08/16/18 04:00 98.3 F 73 18 100/68 98 Weight Admit Weight 105 lb Weight 105 lb I&O: 08/15/18 08/16/18 08/17/18 06:59 06:59 06:59 Intake Total 800 1300 Balance 800 1300 Result Diagrams: 08/15/18 13:57 08/15/18 04:45 Phys Exam - Physical Examination Constitutional: NAD Respiratory: no wheezing, no rales, no rhonchi, clear to auscultation bilateral Cardiovascular: RRR, no significant murmur, no rub Gastrointestinal: soft, no distention, positive bowel sounds Lower abdominal TTP with peak in LLQ. Mild guarding. Dx/Plan (1) Ulcerative colitis, acute Code(s): K51.90 - ULCERATIVE COLITIS, UNSPECIFIED, WITHOUT COMPLICATIONS Status: Acute Qualifiers: Comment: Stable. Still has some pain but controlled. GI on board. Recs appreciated. Will continue steroids, imuran and sulfasalazinie. Stool studies negative. Scope today. (2) Abdominal pain Code(s): R10.9 - UNSPECIFIED ABDOMINAL PAIN Status: Acute (3) Hematochezia Code(s): K92.1 - MELENA Status: Acute (4) Hypokalemia Code(s): E87.6 - HYPOKALEMIA Status: Resolved (5) Tachycardia Code(s): R00.0 - TACHYCARDIA, UNSPECIFIED Status: Resolved Comment: - Plan * Failed Imuran. Dr. James working on getting her some help with biological agents.
[2018-08-16] MEDS ORDERED: ePHEDrine/0.9% NaCl/PF SYRINGE 50 mg/10 ml ONE (14:42)
[2018-08-16] MEDS ORDERED: PHENYLEPHRINE-NS 100 MCG/ML 10 ML SYRINGE ONE (14:42)
[2018-08-16] MEDS ORDERED: Lidocaine 1% PF 5 ML VIAL ONE (14:42)
[2018-08-16] MEDS ORDERED: PROPOFOL 200 MG/20 ML VIAL ONE (14:42)
[2018-08-16] MEDS: Enoxaparin Sodium 30 MG/0.3 ML SYRINGE SC SCH (21:08)
[2018-08-17] MEDS: HYDROcodone/Acetaminophen 5/325 mg Tablet PO PRN ×3 (00:16→17:30)
[2018-08-17 00:36] LABS: Bilirubin Negative (Negative); Blood, Urine Negative (Negative); Clarity CLEAR (Clear); Glucose, Urine (Dipstick) Negative (Negative); Leukocyte Negative (Negative); Nitrite Negative (Negative); Protein, Urine (Dipstick) Negative (Neg-Trace); Specific Gravity, Urine 1.013 (1.002-1.036); Urobilinogen 0.2 mg/dL (0.2-1.0)
[2018-08-17 00:38] LABS: Bacteria/HPF None Seen HPF (None Seen); Hyaline Casts/LPF 0-3 HYALINE CAST LPF (0-3 Hyaline); RBC/HPF None Seen HPF (0-3); Squamous Epithelial 0-3 HPF (0-3); WBC/HPF None Seen HPF (0-3)
--- NOTE | 2018-08-17 00:45 | OP ---
DATE OF PROCEDURE: 08/16/2018 OPERATIVE PROCEDURE: Ileocolonoscopy with biopsy. PREOPERATIVE DIAGNOSIS: This is a 38-year-old Latin-B[place]an female with history of ulcerative colit is fully compliant with medicine intake. The patient colitis. POSTOPERATIVE DIAGNOSES: Severe colitis from the rectum to splenic flexure. Above the splenic flexu re, the mucosa appears completely normal with normal vascular pattern. The terminal ileum appears no rmal. PROCEDURE IN DETAIL: The patient was placed on her left lateral position and was given sedation by A nesthesia Department. A rectal exam was done before the scope was advanced into the rectum. No lesi ons were felt on rectal exam. A Pentax video colonoscope was introduced into the rectum and advanced all the way into the ileum. The patient has severe colitis starting in the rectum all the way to th e descending colon. There is occasional ulcerations seen in the distal transverse colon area. The m ucosa actually appears normal from the splenic flexure all the way to the cecum. The ileal mucosa ap peared normal. Withdrawal of scope from the cecum to ascending colon, hepatic flexure, and transvers e colon, no pathology seen except for occasional ulceration over the distal transverse colon area. T he colon was very severe and diffuse. However, the ulcerations are quite deep and large the re ctum, sigmoid colon, descending colon. A biopsy obtained from the descending colon, sigmoid colon, a nd rectum. RECOMMENDATIONS: 1. Continue IV steroids. 2. Advance diet to a regular diet today. 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
[2018-08-17 05:42] LABS: Anion Gap 9 mmol/L (10-20); BUN (Urea Nitrogen) 7 mg/dL (7.0-18.7); Calc. Creatinine Clearance 99 mL/min (70-130); Calcium 8.1 mg/dL (7.8-10.44); Carbon Dioxide 28 mmol/L (22-29); Chloride 102 mmol/L (98-107); Estimated GFR-MDRD Greater than 90; Glucose 112 mg/dL (70-105); Sodium 135 mmol/L (136-145)
[2018-08-17 05:54] LABS: Band 16 % (5-11); Hemoglobin 8.9 g/dL (12.0-16.0); Hypochromia SLIGHT = 6-15 cells (100X) (0-5/hpf); Lymphocytes 22 % (21-51); MDiff Complete? YES; Mean Corpuscular HGB CONC 33.6 g/dL (32.0-36.0); Mean Corpuscular Hemoglobin 32.4 pg (27.0-31.0); Mean Corpuscular Volume 96.4 fL (78.0-98.0); Mean Platelet Volume 7.1 fL (7.4-10.4); Monocytes 11 % (0-10); Neutrophil 51 % (42-75); PLT Morphology Comment Appears Adequate; Platelet Count 263 thou/uL (130-400); RBC Distribution Width 13.5 % (11.5-14.5); Red Blood Cell (RBC) Count 2.73 mill/uL (4.20-5.40); White Blood Cell (WBC) Count 2.8 thou/uL (4.8-10.8)
[2018-08-17] MEDS: Famotidine 20 MG TAB PO SCH ×2 (09:06→21:27)
--- NOTE | 2018-08-17 17:40 | PDOC.PN ---
- Subjective Encounter Start Date: 08/17/18 Encounter Start Time: 17:36 Ms. Barba was seen today in follow-up of Ulcerative Colitis. She continues to have fairly severe abdominal pain, and is still passing what she describes as bea blood. - Objective Resuscitation Status: Resuscitation Status FULL:Full Resuscitation MAR Reviewed: Yes Vital Signs & Weight: Vital Signs (12 hours) Temp Pulse Resp BP Pulse Ox 08/17/18 13:10 98.7 F 72 16 113/76 97 08/17/18 08:00 98.4 F 77 16 104/54 L 99 Weight Admit Weight 105 lb Weight 105 lb I&O: 08/16/18 08/17/18 08/18/18 06:59 06:59 06:59 Intake Total 1300 240 Balance 1300 240 Result Diagrams: 08/17/18 04:08 08/17/18 04:08 Phys Exam - Physical Examination Respiratory: no wheezing, no rales, no rhonchi, clear to auscultation bilateral Cardiovascular: RRR, no significant murmur, no rub Gastrointestinal: soft, no distention, positive bowel sounds + diffuse abdominal pain Musculoskeletal: edema present trace ankle edema Psychiatric: normal affect, A&O x 3 Dx/Plan (1) Ulcerative colitis, acute Code(s): K51.90 - ULCERATIVE COLITIS, UNSPECIFIED, WITHOUT COMPLICATIONS Status: Acute Qualifiers: Comment: Stable. Still has some pain but controlled. GI on board. Recs appreciated. Will continue steroids, imuran and sulfasalazinie. Stool studies negative. Scope today. (2) Anemia due to chronic blood loss Code(s): D50.0 - IRON DEFICIENCY ANEMIA SECONDARY TO BLOOD LOSS (CHRONIC) Status: Acute - Plan * Ulcerative Colitis- she continues to have bloody diarrhea, and abdominal pain - Continue Solumedrol , and consider biologic agent. * Continue IV hydration and pain control * Anemia- likely due to chronic blood loss from Ulcerative colitis- will monitor H&H, and consider transfusion if she falls below 7.0 .
[2018-08-17] MEDS: Enoxaparin Sodium 30 MG/0.3 ML SYRINGE SC SCH (21:26)
--- NOTE | 2018-08-18 | PRG ---
DATE OF SERVICE: 08/17/2018 SUBJECTIVE: This is a 38-year-old female with longstanding ulcerative colitis, in the hospital with a flare of colitis. She underwent a colonoscopy yesterday and was found to have sever e colitis involving the left colon. She underwent biopsy. She was placed on IV Solu-Medrol. She connlely d 5 stools yesterday and stools are watery with some blood. She also has some abdominal cramping off and on, some urgency of bowel movement. She had only 1 stool today. OBJECTIVE: GENERAL: Appears comfortable. VITAL SIGNS: Afebrile, pulse is 72, blood pressure 113/76. CARDIOVASCULAR: First and second heart sounds normal. LUNGS: Clear to auscultation. ABDOMEN: Soft. Abdomen is nondistended. Abdomen is mildly tender over the left lower quadrant. Th ere is no rebound or guarding. LABORATORY DATA: WBC 2800, hemoglobin 9.9, hematocrit 26.7, platelet count is 263,000. Chemistry pa lydia: Potassium 4. Electrolytes are normal. The stool studies have been negative. Also, has had _ ____ markers are negative. RECOMMENDATIONS: Observable for 1 more day and if diarrhea does not come back, consider discharge ho me. She was put on p.o. prednisone, sulfasalazine. She will see Dr. Gurpreet James in the near leann hernandez and possibly get started on biologicals.
[2018-08-18 04:49] LABS: Hemoglobin 9.6 g/dL (12.0-16.0); Platelet Count 315 thou/uL (130-400)
[2018-08-18] MEDS: Famotidine 20 MG TAB PO SCH (09:08)
[2018-08-18] MEDS: HYDROcodone/Acetaminophen 5/325 mg Tablet PO PRN ×2 (09:08→15:36)
--- NOTE | 2018-08-18 15:38 | PDOC.PN ---
- Subjective Encounter Start Date: 08/18/18 Encounter Start Time: 15:36 Ms. Hager was seen today in follow-up of Ulcerative Colitis. She is feeling a little better, and would like to go home. Bloody diarrhea has improved. - Objective Resuscitation Status: Resuscitation Status FULL:Full Resuscitation MAR Reviewed: Yes Vital Signs & Weight: Vital Signs (12 hours) Temp Pulse Resp BP BP Pulse Ox 08/18/18 11:54 98.1 F 69 16 122/77 96 08/18/18 07:35 96 08/18/18 07:29 98.4 F 65 14 103/69 96 Weight Admit Weight 105 lb Weight 105 lb I&O: 08/17/18 08/18/18 08/19/18 06:59 06:59 06:59 Intake Total 240 1555 Balance 240 1555 Result Diagrams: 08/18/18 03:52 08/17/18 04:08 Phys Exam - Physical Examination Respiratory: no wheezing, no rales, no rhonchi, clear to auscultation bilateral Cardiovascular: RRR, no significant murmur, no rub Gastrointestinal: soft, non-tender, no distention, positive bowel sounds Musculoskeletal: no edema Dx/Plan (1) Ulcerative colitis, acute Code(s): K51.90 - ULCERATIVE COLITIS, UNSPECIFIED, WITHOUT COMPLICATIONS Status: Acute Qualifiers: Comment: Stable. Still has some pain but controlled. GI on board. Recs appreciated. Will continue steroids, imuran and sulfasalazinie. Stool studies negative. Scope today. (2) Anemia due to chronic blood loss Code(s): D50.0 - IRON DEFICIENCY ANEMIA SECONDARY TO BLOOD LOSS (CHRONIC) Status: Acute - Plan * Ulcerative Colitis- discussed with Dr. Walden- she is stable for discharge home on oral steroids, and Sulfa -salazine.
[2018-08-18 18:23] VITALS: BP 121/66; TEMP 98
--- NOTE | 2018-08-18 22:30 | PRG ---
DATE OF SERVICE: 08/18/2018 HOSPITAL VISIT NOTE HISTORY OF PRESENT ILLNESS: Ms. Camille Hager is a 38-year-old, Latin-Maltese female with longstandi ng ulcerative colitis. She has also, over the weekend, a flare of colitis. Her stool studies C. difficile came back negative. Her hepatitis markers are negative. The patient had a colonoscopy on Friday, which revealed severe colitis on the left side. The patient had IV steroids and also sulf asalazine. She had only 2 stools yesterday and loose with some blood. She has abdominal pain today. She has no stool today. PHYSICAL EXAMINATION: GENERAL: Appears comfortable. VITAL SIGNS: Stable, afebrile, pulse is 69, blood pressure 122/77. CARDIOVASCULAR SYSTEM: First and second heart sounds normal. LUNGS: Clear to auscultation. ABDOMEN: Soft. Abdomen is nontender. No organomegaly or masses. Bowel sounds are normal. CLINICAL IMPRESSION: Ulcerative colitis, her symptoms are markedly improved. She has only stools ye sterday and no stool today. She is tolerating a regular diet. RECOMMENDATIONS: 1. Discharge the patient home on prednisone 40 mg once a day with a tapering of prednisone 5 mg ever y 7 days. 2. Potassium supplement. 3. Sulfasalazine 1 gram p.o. 3 times a day. 4. The patient is advised to follow up with Dr. Gurpreet James as an outpatient in the near future.
--- NOTE | 2018-08-19 01:41 | DIS ---
PRIMARY CARE PHYSICIAN: The patient currently does not have a primary care physician. DATE OF ADMISSION: 08/14/2018 DATE OF DISCHARGE: 08/18/2018 DISCHARGE DISPOSITION: Home. PRIMARY DISCHARGE DIAGNOSES: 1. Ulcerative colitis, flare. 2. Chronic blood loss anemia secondary to #1. DISCHARGE MEDICATIONS: Include prednisone taper from 40 mg down by 5 mg every week. She is to prieto nue sulfasalazine and tramadol 50 mg twice a day. PROCEDURES DONE DURING ADMISSION: The patient had ileocolonoscopy with biopsy and it showed severe c olitis from the rectum to the splenic flexure. The terminal ileum appeared normal. CODE STATUS: FULL CODE. ALLERGIES: No known drug allergies. HOSPITAL COURSE: Ms. Hager is a pleasant 38-year-old female, who presented to the emergency room wi th complaints of severe abdominal pain and bloody diarrhea. The patient was admitted and found to connelly ve a flare of ulcerative colitis. She was started on IV steroids. Stool studies were done which wer e negative and given the severity of her symptoms, test to prepare her for biologic agent were done i ncluding a QuantiFERON and a hepatitis panel and the plan is for her to be discharged home and then c an follow up in the outpatient setting to have the potential biologic agent started and she will be f ollowing up with Dr. Gurpreet James for this.
== END 2018-08-18 18:20 | disposition home or self-care (01) | DRG 386 ==
LOC: ERS 12:23 → T4-B 14:43
PROVIDERS: ADMIT Internal Medicine; ATTEND Internal Medicine
PROC: 0DBM8ZX Excision of Descending Colon, Via Natural or Artificial Opening Endoscopic, Diagnostic (ICD-10-PCS; principal; 2018-08-16)
PROC: 0DBN8ZX Excision of Sigmoid Colon, Via Natural or Artificial Opening Endoscopic, Diagnostic (ICD-10-PCS; 2018-08-16)
PROC: 0DBP8ZX Excision of Rectum, Via Natural or Artificial Opening Endoscopic, Diagnostic (ICD-10-PCS; 2018-08-16)
DX: K51.90 Ulcerative colitis, unspecified, without complications (principal); K92.1 Melena; E87.6 Hypokalemia; R00.0 Tachycardia, unspecified; D50.0 Iron deficiency anemia secondary to blood loss (chronic)
CPT/HCPCS: 36415; 74177; 80048; 80053; 81001; 81003; 82553; 83605; 83690; 84484; 84703; 85014; 85018; 85025; 85049; 85652; 86140; 86480; 86704; 86706; 86708; 86803; 86850; 86900; 86901; 87045; 87046; 87324; 87328; 87329; 87340; 87389; 87449; 87899; 88305; 93005; 96361; 96374; 96375; A4216; J1100; J1650; J2001; J2270; J2405; J2704; J2920; Q0162

== ENCOUNTER 2019-08-13 08:27 | Day surgery (SDC) | payer OTHER ==
[~2019-08-13 08:27] MED LIST: Acetaminophen 500 MG TAB PO PRN; Sodium Chloride 0.9% 1,000 ML IV SCH; Vedolizumab 300 MG in Sodium Chloride 0.9% 250 ML 250 ML IVPB SCH
[2019-08-13] MEDS ORDERED: Sodium Chloride 0.9% 20 ML ONE (09:27)
[2019-08-13 09:29] VITALS: BP 117/53; TEMP 97.8
== END 2019-08-13 10:29 | disposition home or self-care (01) ==
LOC: ONC/OP 08:27
PROVIDERS: ATTEND Internal Medicine Gastroenterology
DX: K51.50 Left sided colitis without complications (principal)
CPT/HCPCS: 96365

== ENCOUNTER 2019-10-15 09:17 | Day surgery (SDC) | payer OTHER ==
[2019-10-15 13:26] VITALS: BP 109/69; TEMP 98.7
== END 2019-10-15 13:29 | disposition home or self-care (01) ==
LOC: ONC/OP 09:17
PROVIDERS: ATTEND Internal Medicine Gastroenterology
DX: K51.90 Ulcerative colitis, unspecified, without complications (principal)
CPT/HCPCS: 96413

== ENCOUNTER 2019-12-17 08:09 | Day surgery (SDC) | payer OTHER ==
[2019-12-17] MEDS ORDERED: Sodium Chloride 0.9% 20 ML ONE ×2 (08:25→08:32)
[2019-12-17 09:31] VITALS: BP 99/47; TEMP 98.4
== END 2019-12-17 10:22 | disposition home or self-care (01) ==
LOC: ONC/OP 08:09
PROVIDERS: ATTEND Internal Medicine Gastroenterology
DX: K51.90 Ulcerative colitis, unspecified, without complications (principal)
CPT/HCPCS: 96413

== ENCOUNTER 2020-02-11 08:43 | Day surgery (SDC) | payer OTHER ==
[~2020-02-11 08:43] MED LIST changes: +Acetaminophen 500 MG TAB PO SCH
[2020-02-11] MEDS ORDERED: Sodium Chloride 0.9% 20 ML ONE (09:16)
[2020-02-11 09:22] VITALS: BP 104/54; TEMP 99
== END 2020-02-11 10:41 | disposition home or self-care (01) ==
LOC: ONC/OP 08:43
PROVIDERS: ATTEND Internal Medicine Gastroenterology
DX: K51.90 Ulcerative colitis, unspecified, without complications (principal)
CPT/HCPCS: 96413

== ENCOUNTER 2020-04-07 08:21 | Day surgery (SDC) | payer OTHER ==
[2020-04-07] MEDS ORDERED: Sodium Chloride 0.9% 20 ML ONE (08:31)
[2020-04-07 09:30] VITALS: BP 101/53; TEMP 98.6
== END 2020-04-07 10:09 | disposition home or self-care (01) ==
LOC: ONC/OP 08:21
PROVIDERS: ATTEND Internal Medicine Gastroenterology
DX: K51.90 Ulcerative colitis, unspecified, without complications (principal)
CPT/HCPCS: 96413; J3380; J7050

== ENCOUNTER 2020-06-02 08:10 | Day surgery (SDC) | payer OTHER ==
[2020-06-02] MEDS ORDERED: EPOETIN ALFA-EPBX (ESRD) 40,000 UNIT/ML VIAL ONE (08:59)
[2020-06-02 10:36] VITALS: BP 100/55; TEMP 98.5
== END 2020-06-02 10:38 | disposition home or self-care (01) ==
LOC: ONC/OP 08:10
PROVIDERS: ATTEND Internal Medicine Gastroenterology
DX: K51.90 Ulcerative colitis, unspecified, without complications (principal)
CPT/HCPCS: 96411; 96413; Q5105

== ENCOUNTER 2020-07-28 08:56 | Day surgery (SDC) | payer OTHER, SELFPAY ==
[~2020-07-28 08:56] MED LIST changes: -Acetaminophen 500 MG TAB PO SCH; -Sodium Chloride 0.9% 1,000 ML IV SCH; -Vedolizumab 300 MG in Sodium Chloride 0.9% 250 ML 250 ML IVPB SCH
[2020-07-28] MEDS ORDERED: Vedolizumab 300 MG in Sodium Chloride 0.9% 250 ML 250 ML IVPB SCH (09:00)
[2020-07-28] MEDS ORDERED: Sodium Chloride 0.9% 20 ML ONE (09:04)
[2020-07-28 09:30] VITALS: BP 101/55; TEMP 98.8
== END 2020-07-28 10:58 | disposition home or self-care (01) ==
LOC: ONC/OP 08:56
PROVIDERS: ATTEND Internal Medicine Gastroenterology
DX: K51.90 Ulcerative colitis, unspecified, without complications (principal)
CPT/HCPCS: 96413

== ENCOUNTER 2020-09-22 08:32 | Day surgery (SDC) | payer SELFPAY ==
[~2020-09-22 08:32] MED LIST changes: +Acetaminophen 500 MG TAB PO SCH; +Sodium Chloride 0.9% 1,000 ML IV SCH; +Vedolizumab 300 MG in Sodium Chloride 0.9% 250 ML 250 ML IVPB SCH
== END 2020-09-22 11:39 | disposition home or self-care (01) ==
LOC: ONC/OP 08:32
PROVIDERS: ATTEND Internal Medicine Gastroenterology
DX: K51.90 Ulcerative colitis, unspecified, without complications (principal)
CPT/HCPCS: 96413

== ENCOUNTER 2020-11-17 08:09 | Day surgery (SDC) | payer SELFPAY ==
[2020-11-17 09:30] VITALS: BP 115/57; TEMP 98.6
== END 2020-11-17 10:58 | disposition home or self-care (01) ==
LOC: ONC/OP 08:09
PROVIDERS: ATTEND Internal Medicine Gastroenterology
DX: K51.90 Ulcerative colitis, unspecified, without complications (principal)
CPT/HCPCS: 96413

== ENCOUNTER 2021-01-19 08:33 | Day surgery (SDC) | payer SELFPAY ==
[2021-01-19] MEDS ORDERED: Sodium Chloride 0.9% 20 ML ONE (08:55)
[2021-01-19 09:22] VITALS: BP 101/52; TEMP 98.9
== END 2021-01-19 15:58 | disposition home or self-care (01) ==
LOC: ONC/OP 08:33
PROVIDERS: ATTEND Internal Medicine Gastroenterology
DX: K51.90 Ulcerative colitis, unspecified, without complications (principal)
CPT/HCPCS: 96413

== ENCOUNTER 2021-03-16 08:28 | Day surgery (SDC) | payer SELFPAY ==
[2021-03-16] MEDS ORDERED: Sodium Chloride 0.9% 20 ML ONE (08:43)
[2021-03-16 09:06] VITALS: BP 109/53; TEMP 98.8
== END 2021-03-16 12:55 | disposition home or self-care (01) ==
LOC: ONC/OP 08:28
PROVIDERS: ATTEND Internal Medicine Gastroenterology
DX: K51.90 Ulcerative colitis, unspecified, without complications (principal)
CPT/HCPCS: 96413

== ENCOUNTER 2021-05-11 08:39 | Day surgery (SDC) | payer SELFPAY ==
[2021-05-11] MEDS ORDERED: Acetaminophen 500 MG TAB PO SCH (08:45)
[2021-05-11] MEDS ORDERED: Vedolizumab 300 MG in Sodium Chloride 0.9% 250 ML 250 ML IVPB SCH (08:45)
[2021-05-11] MEDS ORDERED: Sodium Chloride 0.9% 20 ML ONE (08:45)
[2021-05-11] MEDS ORDERED: Acetaminophen 500 MG TAB PO PRN (08:49)
[2021-05-11] MEDS ORDERED: Sodium Chloride 0.9% 1,000 ML IV SCH (09:00)
[2021-05-11 09:37] VITALS: BP 104/51
== END 2021-05-11 10:16 | disposition home or self-care (01) ==
LOC: EEVIPCON 08:39 → ONC/OP 08:39
PROVIDERS: ATTEND Internal Medicine Gastroenterology
DX: K51.90 Ulcerative colitis, unspecified, without complications (principal)
CPT/HCPCS: 96413

== ENCOUNTER 2021-07-06 09:16 | Day surgery (SDC) | payer SELFPAY ==
[2021-07-06 09:49] VITALS: BP 106/54
== END 2021-07-06 12:05 | disposition home or self-care (01) ==
LOC: ONC/OP 09:16
PROVIDERS: ATTEND Internal Medicine Gastroenterology
DX: K51.90 Ulcerative colitis, unspecified, without complications (principal)

== ENCOUNTER 2021-08-31 09:01 | Day surgery (SDC) | payer OTHER ==
[2021-08-31] MEDS ORDERED: Acetaminophen 500 MG TAB PO PRN ×2 (09:14→09:15)
[2021-08-31] MEDS ORDERED: Sodium Chloride 0.9% 1,000 ML IV SCH (09:15)
[2021-08-31] MEDS ORDERED: Vedolizumab 300 MG in Sodium Chloride 0.9% 250 ML 250 ML IVPB SCH (09:30)
[2021-08-31 09:35] VITALS: BP 109/54; TEMP 98
[2021-08-31] MEDS ORDERED: Sodium Chloride 0.9% 20 ML ONE (12:05)
== END 2021-08-31 13:06 | disposition home or self-care (01) ==
LOC: ONC/OP 09:01
PROVIDERS: ATTEND Internal Medicine Gastroenterology
DX: K51.90 Ulcerative colitis, unspecified, without complications (principal)
CPT/HCPCS: 96413

== ENCOUNTER 2021-10-31 12:44 | Day surgery (SDC) | payer OTHER ==
[~2021-10-31 12:44] MED LIST changes: -Acetaminophen 500 MG TAB PO SCH
[2021-10-31 13:18] VITALS: BP 111/54; TEMP 98.2
== END 2021-10-31 13:44 | disposition home or self-care (01) ==
LOC: ONC/OP 12:44
PROVIDERS: ATTEND Internal Medicine Gastroenterology
DX: K51.90 Ulcerative colitis, unspecified, without complications (principal)
CPT/HCPCS: 96413

== ENCOUNTER 2021-12-21 10:21 | Day surgery (SDC) | payer SELFPAY, OTHER ==
[~2021-12-21 10:21] MED LIST changes: -Sodium Chloride 0.9% 1,000 ML IV SCH
[2021-12-21] MEDS ORDERED: Sodium Chloride 0.9% 10 ML ONE ×2 (10:33)
[2021-12-21 11:10] VITALS: BP 104/62; TEMP 98.1
== END 2021-12-21 13:45 | disposition home or self-care (01) ==
LOC: ONC/OP 10:21
PROVIDERS: ATTEND Internal Medicine Gastroenterology
DX: K51.90 Ulcerative colitis, unspecified, without complications (principal)
CPT/HCPCS: 96413

== ENCOUNTER 2022-02-15 10:33 | Day surgery (SDC) | payer SELFPAY, OTHER ==
[2022-02-15 10:59] VITALS: BP 120/57; TEMP 97.6
== END 2022-02-15 12:55 | disposition home or self-care (01) ==
LOC: ONC/OP 10:33
PROVIDERS: ATTEND Internal Medicine Gastroenterology
DX: K51.90 Ulcerative colitis, unspecified, without complications (principal)
CPT/HCPCS: 96413

== ENCOUNTER 2022-04-12 08:04 | Day surgery (SDC) | payer OTHER ==
[2022-04-12] MEDS ORDERED: Acetaminophen 500 MG TAB PO SCH (08:45)
[2022-04-12] MEDS ORDERED: Vedolizumab 300 MG in Sodium Chloride 0.9% 250 ML 250 ML IVPB SCH (09:00)
[2022-04-12 09:35] VITALS: BP 98/44; TEMP 98.5
[2022-04-12] MEDS ORDERED: Acetaminophen 500 MG TAB ONE ×2 (09:52)
== END 2022-04-12 10:40 | disposition home or self-care (01) ==
LOC: ONC/OP 08:04
PROVIDERS: ATTEND Internal Medicine Gastroenterology
DX: K51.50 Left sided colitis without complications (principal)
CPT/HCPCS: 96413; J3380; J7050

== ENCOUNTER 2022-06-07 08:59 | Day surgery (SDC) | payer OTHER ==
[~2022-06-07 08:59] MED LIST changes: -Acetaminophen 500 MG TAB PO PRN; +Acetaminophen 500 MG TAB PO SCH
[2022-06-07 09:47] VITALS: BP 106/54; TEMP 98.7
== END 2022-06-07 10:54 | disposition home or self-care (01) ==
LOC: ONC/OP 08:59
PROVIDERS: ATTEND Internal Medicine Gastroenterology
DX: K51.50 Left sided colitis without complications (principal)
CPT/HCPCS: 96365

== ENCOUNTER 2022-08-08 13:47 | Day surgery (SDC) | payer OTHER ==
[2022-08-08] MEDS ORDERED: Acetaminophen 500 MG TAB ONE ×2 (15:03)
[2022-08-08 15:48] VITALS: BP 119/58; TEMP 98.7
== END 2022-08-08 15:51 | disposition home or self-care (01) ==
LOC: ONC/OP 13:47
PROVIDERS: ATTEND Internal Medicine Gastroenterology
DX: K51.50 Left sided colitis without complications (principal)
CPT/HCPCS: 96365; J3380; J7050

== ENCOUNTER 2022-10-10 13:39 | Day surgery (SDC) | payer OTHER ==
[2022-10-10] MEDS ORDERED: Acetaminophen 500 MG TAB ONE ×2 (14:53)
[2022-10-10 15:01] VITALS: BP 132/61; TEMP 98.4
== END 2022-10-10 16:11 | disposition home or self-care (01) ==
LOC: ONC/OP 13:39
PROVIDERS: ATTEND Internal Medicine Gastroenterology
DX: K50.80 Crohn's disease of both small and large intestine without complications (principal)
CPT/HCPCS: 96413

== ENCOUNTER 2022-12-05 13:45 | Day surgery (SDC) | payer SELFPAY ==
[2022-12-05] MEDS ORDERED: Acetaminophen 500 MG TAB ONE (14:39)
[2022-12-05 15:06] VITALS: BP 114/52; TEMP 98.1
== END 2022-12-05 16:02 | disposition home or self-care (01) ==
LOC: ONC/OP 13:45
PROVIDERS: ATTEND Internal Medicine Gastroenterology
DX: K50.80 Crohn's disease of both small and large intestine without complications (principal)
CPT/HCPCS: 96413

== ENCOUNTER 2023-03-27 14:23 | Day surgery (SDC) | payer SELFPAY ==
[2023-03-27] MEDS ORDERED: EPINEPHrine 1 MG/ML AMP IM PRN (14:32)
[2023-03-27] MEDS ORDERED: diphenhydrAMINE 50 MG/ML VIAL IVP PRN (14:32)
[2023-03-27] MEDS ORDERED: Sodium Chloride 0.9% 500 ML IV PRN (14:33)
[2023-03-27] MEDS ORDERED: Acetaminophen 500 MG TAB PO SCH (14:45)
[2023-03-27] MEDS ORDERED: Vedolizumab 300 MG in Sodium Chloride 0.9% 250 ML 250 ML IVPB SCH (14:45)
[2023-03-27] MEDS ORDERED: Acetaminophen 500 MG TAB ONE (15:03)
[2023-03-27 15:38] VITALS: BP 108/58; TEMP 97.9
== END 2023-03-27 15:53 | disposition home or self-care (01) ==
LOC: ONC/OP 14:23
PROVIDERS: ATTEND Internal Medicine Gastroenterology
DX: K51.90 Ulcerative colitis, unspecified, without complications (principal)
CPT/HCPCS: 96413

== ENCOUNTER 2023-05-22 11:59 | Day surgery (SDC) | payer SELFPAY ==
[~2023-05-22 11:59] MED LIST changes: +EPINEPHrine 1 MG/ML AMP IM PRN; +Sodium Chloride 0.9% 500 ML IV PRN; +diphenhydrAMINE 50 MG/ML VIAL IVP PRN
[2023-05-22 12:17] VITALS: BP 100/53; TEMP 98.7
== END 2023-05-22 13:42 | disposition home or self-care (01) ==
LOC: ONC/OP 11:59
PROVIDERS: ATTEND Internal Medicine Gastroenterology
DX: K51.90 Ulcerative colitis, unspecified, without complications (principal)
CPT/HCPCS: 96413

== ENCOUNTER 2023-07-24 13:56 | Day surgery (SDC) | payer SELFPAY ==
[~2023-07-24 13:56] MED LIST changes: +EPINEPHrine 1 MG/ML AMP IVP PRN
[2023-07-24 14:24] VITALS: BP 108/56; TEMP 98.2
[2023-07-24] MEDS ORDERED: Acetaminophen 500 MG TAB ONE (14:36)
== END 2023-07-24 15:30 | disposition home or self-care (01) ==
LOC: ONC/OP 13:56
PROVIDERS: ATTEND Internal Medicine Gastroenterology
DX: K51.90 Ulcerative colitis, unspecified, without complications (principal)
CPT/HCPCS: 96413; J3380; J7050

== ENCOUNTER 2023-09-25 14:04 | Day surgery (SDC) | payer SELFPAY ==
[~2023-09-25 14:04] MED LIST changes: -EPINEPHrine 1 MG/ML AMP IM PRN; -EPINEPHrine 1 MG/ML AMP IVP PRN; -Sodium Chloride 0.9% 500 ML IV PRN; -diphenhydrAMINE 50 MG/ML VIAL IVP PRN
[2023-09-25] MEDS ORDERED: Acetaminophen 500 MG TAB ONE (14:32)
[2023-09-25 14:42] VITALS: BP 110/56; TEMP 97.7
[2023-09-25] MEDS ORDERED: FLU VACC QS2023-24(6MOS UP)/PF 60 MCG/0.5 ML SYRINGE IM ONE (15:15)
== END 2023-09-25 15:47 | disposition home or self-care (01) ==
LOC: ONC/OP 14:04
PROVIDERS: ATTEND Internal Medicine Gastroenterology
DX: K51.90 Ulcerative colitis, unspecified, without complications (principal)
CPT/HCPCS: 90471; 90686; 96413; G0008; J3380; J7050

== ENCOUNTER 2023-11-27 13:48 | Day surgery (SDC) | payer SELFPAY ==
[2023-11-27 15:25] VITALS: BP 116/55; TEMP 98.1
== END 2023-11-27 16:00 | disposition home or self-care (01) ==
LOC: ONC/OP 13:48
PROVIDERS: ATTEND Internal Medicine Gastroenterology
DX: K51.90 Ulcerative colitis, unspecified, without complications (principal)
CPT/HCPCS: 96413; J3380; J7050